=== PATIENT | female | born 1975 | race Caucasian/White ===

== ENCOUNTER 2018-06-18 03:04 | Emergency (ER) | payer MEDICAID ==
[2018-06-18] MEDS ORDERED: Ketorolac Tromethamine 30 MG/ML VIAL ONE (03:38)
[2018-06-18] MEDS ORDERED: Clindamycin/D5W 900 mg/50 ml Premix Bag ONE (03:38)
== END 2018-06-18 04:40 | disposition home or self-care (01) ==
LOC: ERS 03:04
DX: K12.2 Cellulitis and abscess of mouth (principal); K02.9 Dental caries, unspecified; I10 Essential (primary) hypertension; F32.9 Major depressive disorder, single episode, unspecified; F17.210 Nicotine dependence, cigarettes, uncomplicated; Z79.899 Other long term (current) drug therapy
CPT/HCPCS: 96365; 96375; J1885; J3490